=== PATIENT | female | born 1960 | race Caucasian/White ===

== ENCOUNTER → 2018-03-03 14:58 | Outpatient (CLI) | payer OTHER, SELFPAY ==
--- NOTE | 2018-03-03 | DI.CT.S_ITS ---
PROCEDURE: CT ABDOMEN W CON INDICATIONS: LEFT UPPER QUADRANT ABDOMINAL PAIN TECHNIQUE: After the administration of oral and intravenous contrast, 5 mm thick sections acquired from the diaphragms to the iliac crests. 5 mm thick coronal and sagittal reformats were acquired. For radiation dose reduction, the following was used: automated exposure control, adjustment of mA and/or kV according to patient size. COMPARISON: None. FINDINGS: Image quality: Excellent. Lung bases: Bibasilar dependent atelectasis is seen. No pleural effusion or pneumothorax. Heart size is normal. Solid organs: Hepatomegaly is seen. Mildly decreased liver parenchymal density is seen suggestive of mild hepatic steatosis. Gallbladder is within normal limits. Biliary system is non dilated. Ill-defined hypodensity involving body and proximal tail of pancreas is seen with funmi-pancreatic inflammatory changes. This area measures approximately 3.8 x 3 x 3.4 cm in size suspicious for neoplastic process involving body/tail of pancreas versus pancreatitis. Mild pancreatic ductal dilatation distal to this lesion in pancreatic tail region is seen and measures up to 6 mm in diameter. 1.3 cm cystic area is also seen anterior and inferior to body of pancreas. No gross abnormality is seen in pancreatic head region. Spleen is normal in size and enhancement. No adrenal nodules. Kidneys are normal in size, without hydronephrosis. Peritoneum and bowel: Contrast enhanced bowel loops appear normal in caliber. No free fluid or air. Nodes and vessels: No retroperitoneal or mesenteric adenopathy by size criteria. Aorta and inferior vena cava are normal in size. Bones: No suspicious bony lesions. No vertebral body compression fractures. Miscellaneous: No ventral hernias. IMPRESSION: 1. 3.8 x 3 x 2.4 cm ill-defined hypodense area involving body/proximal tail and pancreas with mild peripancreatic edema. Mild dilatation of pancreatic duct in the region of pancreatic tail is seen distal to the above-mentioned hypodense area. Finding is concerning for malignancy involving pancreas versus focal pancreatitis. 1.3 cm cystic area adjacent to body of pancreas which could represent a pseudocyst. Clinical correlation is recommended. 2. Hepatomegaly and suggestion of hepatic steatosis. No discrete hepatic lesion is noted. No intrahepatic biliary ductal dilatation. 3. No bowel obstruction. No peritoneal free fluid or free air. Dictated by: Michael Nation M.D. on 03/03/2018 at 16:55 Approved by: Michael Nation M.D. on 03/03/2018 at 17:08
== END ==
PROVIDERS: PCP Family Medicine; Visit Provider Family Medicine
DX: R10.12 Left upper quadrant pain (principal); K86.89 Other specified diseases of pancreas; R16.0 Hepatomegaly, not elsewhere classified
CPT/HCPCS: 74160; Q9967

== ENCOUNTER 2018-07-16 17:49 | Emergency (ER) | payer OTHER, SELFPAY ==
[2018-07-16 17:58] VITALS: BP 135/89; PULSE 82; RESP 20; TEMP 36.1; O2SAT 97; BMI 27.4
--- NOTE | 2018-07-16 18:43 | ED.NEUROSD ---
HPI - Neuro Symptoms/Deficit General Chief Complaint: Neuro Symptoms/Deficit Stated Complaint: RT HAND AND ARM NUMBNESS Time Seen by Provider: 07/16/18 18:43 Source: patient Mode of arrival: ambulatory Limitations: no limitations History of Present Illness HPI Narrative: Patient is a 58-year-old female currently undergoing chemotherapy for pancreatic cancer. She states that earlier today she was sitting at her desk at work which she had a sudden onset of a room spinning sensation. She states that lasted 10-15 seconds and then improved with the not go completely away. She states that it then came on again lasting again 10-15 seconds and then resolved. She denies any other associated symptoms include chest pain or headache or ringing in her ears or palpitations or shortness of breath. She has never had vertigo in the past. She states that at some point after these symptoms happen she started getting tingling in the palm of her right hand. She included all of the fingers on the right hand but just the palm. She then stated that the tingling was moving upper arm but did not go above her elbow. She called her oncologist who told her to come to the emergency department for evaluation. On Anticoagulants: No Review of Systems Constitutional Denies fever(s), Denies headache(s) and Denies weakness ENT Ears, Nose, Mouth, and Throat: Reports vertigo and Denies headache(s) Cardiovascular Denies chest pain, Denies edema, Denies palpitations and Denies dyspnea Respiratory Denies dyspnea Gastrointestinal Gastrointestinal: Denies abdominal pain Musculoskeletal Denies myalgias, Denies arthralgias and Reports tingling Integumentary/Breasts Denies rash Neurologic Denies confusion, Reports vertigo, Denies headache(s), Reports tingling and Denies weakness Psychiatric Denies confusion Endocrine Denies palpitations Hematologic/Lymphatic Denies easy bleeding and Denies easy bruising Allergic/Immunologic Denies urticaria [facility] Medical History (Updated 07/17/18 @ 04:57 by Neeraj Louis DO) Pancreatic cancer (Acute) Social History Smoking Status: Current every day smoker Social History Smoking Status: Current every day smoker Exam Initial Vital Signs Initial Vital Signs: Vital Signs Temperature 97.0 F L 07/16/18 17:58 Pulse Rate 82 07/16/18 17:58 Respiratory Rate 20 07/16/18 17:58 Blood Pressure 135/89 07/16/18 17:58 Pulse Oximetry 97 07/16/18 17:58 Const General: cooperative, healthy appearing, comfortable, well developed and well groomed Orientation: alert, awake and oriented x3 HENMT Head: normal to inspection and normocephalic Resp Effort & Inspection: normal respiratory effort Auscultation: clear to auscultation bilaterally Cardio Rate: regular rate Rhythm: regular rhythm Skin Lesions: no lesions Rashes: no rashes Neuro General: alert, awake and oriented x3 Cranial Nerves: CN's II-XI intact bilaterally Cognition: normal cognition Speech: speech normal Motor: muscle tone normal throughout, strength 5/5 throughout, muscle tone abnormal and No pronator drift Sensory Exam: other (Initially the patient reported tingling to the palm of her hand flew in all) Extrem General: normal to inspection and capillary refill normal Psych Appearance: grossly normal and well kempt Scores GCS [place] coma scale eye opening: Spontaneous [place] coma scale verbal response: Orientated [place] coma scale motor response: Obey commands [place] coma scale total score: 15 NIH Stroke Scale Level of Conciousness: Alert, keenly responsive Ask month/age: Answers both questions correctly. Open/close eyes, close hand: Performs both tasks correctly Best gaze horizontal: Normal Visual jacobs: No visual loss Facial palsy: Normal symetrical movement Left arm drift: No drift for full 10 sec Right arm drift: No drift for full 10 sec Left leg drift: No drift for full 10 sec Right leg drift: No drift for full 10 sec Limb ataxia: Absent Sensory on face/arms/legs: Normal, no sensory loss Best language: No aphasia, normal Dysarthria: Normal Extinction or inattention: No abnormality Total NIH Stroke scale score: 0 Course Vital Signs - 8 hr 07/16/18 17:58 Temperature 97.0 F L Pulse Rate 82 Respiratory Rate 20 Blood Pressure 135/89 Pulse Oximetry 97 MDM - Neuro Symptoms/Deficit Lab Data Attestation: I reviewed the patient's lab results. Result diagrams: 07/16/18 19:20 07/16/18 19:20 Lab Results 07/16/18 07/16/18 07/16/18 Range/Units 19:20 19:20 19:20 WBC 5.5 (4.5-11.0) X10^3/uL RBC 3.86 L (4.0-5.2) X10^6/uL Hgb 13.7 (12.0-16.0) g/dL Hct 40.6 (36-46) % MCV 105.1 H (80-100) fL MCH 35.6 H (26-34) PG MCHC 33.8 (30-36) % RDW 17.8 H (11.6-14.8) % Plt Count 264 (150-400) X10^3/uL Neut % (Auto) 42.0 L (50-75) % Lymph % (Auto) 44.0 H (25-40) % [place] % (Auto) 4.8 (3-14) % Eos % (Auto) 8.5 H (2-4) % Baso % (Auto) 0.7 (0-2) % Neut # (Auto) 2300 (3985-4911) /uL Lymph # (Auto) 2400 (3952-8575) /uL [place] # (Auto) 300 (0-900) /uL Eos # (Auto) 500 H (0-450) /uL Baso # (Auto) 0 (0-100) /uL PT 11.7 (10.1-12.7) SECONDS INR 1.0 (0.9-1.3) APTT 28 (26.4-36.2) SECONDS Sodium 137 (137-145) mmol/L Potassium 3.9 (3.4-5.1) mmol/L Chloride 103 (98-107) mmol/L Carbon Dioxide 26 (22-32) mmol/L BUN 14 (7-17) mg/dL Creatinine 0.50 L (0.52-1.04) mg/dL Estimated GFR > 60.0 (>60) mL/min BUN/Creatinine Ratio 28.0 H (6-22) Glucose 111 H (70-100) mg/dL Calcium 8.4 (8.4-10.2) mg/dL Total Bilirubin 0.3 (0.2-1.3) mg/dL AST 17 (14-36) IU/L ALT 25 (9-52) IU/L Alkaline Phosphatase 48 (38-126) U/L Total Creatine Kinase < 20 L (30-135) U/L CK-MB (CK-2) TNP CK-MB (CK-2) Rel Index TNP Troponin I < 0.012 (0.01-0.034) ng/mL Total Protein 6.5 (6.3-8.2) g/dL Albumin 3.8 (3.5-5.0) g/dL Globulin 2.7 (1.7-4.1) g/dL Albumin/Globulin Ratio 1.4 (1.0-2.8) Lipase 37 (23-300) U/L ECG Data Attestation: I personally reviewed and interpreted this ECG as follows: Prior ECG tracings: not available for review Interpretation: Sinus rhythm Ventricular rate is 69 Normal axis Normal QRS Normal QTC No ST T wave changes MDM Narrative Medical decision making narrative: Patient with an NIH scale of 0. Has a normal neurologic exam except for some tingling in the palm of her right hand that extends somewhat upper forearm. Strength is unremarkable. Cranial nerves unremarkable. labs unremarkable. EKG is unremarkable. Low suspicion for TIA or CVA. Her symptoms do sound like vertigo. It was sudden onset. She is not currently having vertigo. Will hold on further workup for now. Patient was given strict return precautions. Both her and her was at bedside expressed understanding and agreement with plan. Discharge Plan Departure Patient Disposition: Home Clinical Impression: Vertigo Hand paresthesia Qualifiers: Laterality: right Qualified Code(s): R20.2 - Paresthesia of skin Discharge Date/Time: 07/16/18 20:30 Interventions: ED Discharge Assessment Last Done: 07/16/18 20:39 Instructions: Vertigo (Alternative Therapy), Vertigo Activity Restrictions/Additional Instructions: Recommend you continue with all of your chemotherapy treatments. Keep all of your scheduled medical appointments. Return to the emergency department for any new or worsening symptoms. Referrals: Luis Felipe Rollins MD [Primary Care Provider] -
--- NOTE | 2018-07-16 18:56 | DI.RAD.S_ITS ---
PROCEDURE: XR CHEST 1V INDICATIONS: chest pain TECHNIQUE: One view of the chest was acquired. COMPARISON: None. FINDINGS: Surgical changes and devices: Right chest wall kelly catheter, tip of which is in the mid SVC. Lungs and pleura: Lungs are clear. No pleural effusions or pneumothorax. Mediastinum: Mediastinal contours appear normal. Heart size is normal. Bones and chest wall: No suspicious bony lesions. Overlying soft tissues appear unremarkable. IMPRESSION: No acute process. Dictated by: Barry Ballard M.D. on 07/16/2018 at 19:19 Approved by: Barry Ballard M.D. on 07/16/2018 at 19:20
[2018-07-16 19:00] VITALS: BP 114/73; PULSE 69; RESP 17; O2SAT 96
[2018-07-16 19:38] LABS: Add Manual Diff / Slide Review NO; Basophils Absolute Auto 0 /uL (0-100); Basophils Percent Auto 0.7 % (0-2); Eosinophils Absolute Auto 500 /uL (0-450); Eosinophils Percent Auto 8.5 % (2-4); Hematocrit 40.6 % (36-46); Hemoglobin 13.7 g/dL (12.0-16.0); Lymphocytes Absolute Auto 2400 /uL (1100-4500); Mean Corpuscular HGB Conc 33.8 % (30-36); Mean Corpuscular Hemoglobin 35.6 PG (26-34); Mean Corpuscular Volume 105.1 fL (80-100); Monocytes Absolute Auto 300 /uL (0-900); Monocytes Percent Auto 4.8 % (3-14); Neutrophils Absolute Auto 2300 /uL (1500-7000); Platelet Count 264 X10^3/uL (150-400); Red Blood Cell Count 3.86 X10^6/uL (4.0-5.2); Red Cell Distribution Width 17.8 % (11.6-14.8); White Blood Cell Count 5.5 X10^3/uL (4.5-11.0)
[2018-07-16 19:40] LABS: Prothrombin Time 11.7 SECONDS (10.1-12.7)
[2018-07-16 19:43] LABS: PTT Partial Thromboplastin Tim 28 SECONDS (26.4-36.2)
[2018-07-16 19:45] LABS: Alanine Aminotransferase 25 IU/L (9-52); Albumin 3.8 g/dL (3.5-5.0); Albumin Globulin Ratio 1.4 (1.0-2.8); Alkaline Phosphatase 48 U/L (38-126); Aspartate Aminotransferase 17 IU/L (14-36); Bilirubin Total 0.3 mg/dL (0.2-1.3); Blood Urea Nitrogen 14 mg/dL (7-17); Calcium 8.4 mg/dL (8.4-10.2); Carbon Dioxide 26 mmol/L (22-32); Chloride 103 mmol/L (98-107); Creatine Kinase < 20 U/L (30-135); Estimated Glomerular Filt Rate > 60.0 mL/min (>60); Globulin 2.7 g/dL (1.7-4.1); Glucose 111 mg/dL (70-100); HEMOLYSIS 38 (0-50); Lipase 37 U/L (23-300); Potassium 3.9 mmol/L (3.4-5.1); Sodium 137 mmol/L (137-145); Total Protein 6.5 g/dL (6.3-8.2)
[2018-07-16 19:56] LABS: Troponin I < 0.012 ng/mL (0.01-0.034)
[2018-07-16 20:00] VITALS: BP 122/81; PULSE 67; RESP 23; O2SAT 98
[2018-07-16 20:39] VITALS: BP 122/77; PULSE 68; RESP 15; O2SAT 97
== END 2018-07-16 20:30 | disposition home or self-care (01) ==
PROVIDERS: Emergency Provider Emergency Medicine; Family Provider Nurse Practitioner Family; PCP Family Medicine; Referring Provider Internal Medicine Hematology & Oncology
DX: R42 Dizziness and giddiness (principal); R20.2 Paresthesia of skin
CPT/HCPCS: 36591; 71045; 80053; 82550; 83690; 84484; 85025; 85610; 85730; 93005; 93010; 99283; 99285; 99291

== ENCOUNTER → 2020-02-24 11:21 | Outpatient (CLI) | payer OTHER, SELFPAY ==
--- NOTE | 2020-02-24 11:27 | DI.RAD.S_ITS ---
PROCEDURE: XR WRIST RT 2V INDICATIONS: RT WRIST PAIN TECHNIQUE: For views of the wrist were acquired. COMPARISON: None. FINDINGS: Bones: No fractures or dislocations. No suspicious bony lesions. Scaphoid view: No trauma Soft tissues: No suspicious soft tissue calcifications. IMPRESSION: No trauma found. Dictated by: Blaze Rivera M.D. on 02/24/2020 at 12:04 Approved by: Blaze Rivera M.D. on 02/24/2020 at 12:05
== END ==
PROVIDERS: Family Provider Nurse Practitioner Family; PCP Internal Medicine; Referring Provider Internal Medicine; Visit Provider Internal Medicine
DX: M25.531 Pain in right wrist (principal)
CPT/HCPCS: 73100